=== PATIENT | female | born 1950 | race Caucasian/White ===

== ENCOUNTER 2020-09-20 09:21 | Outpatient (REF) | payer MEDICARE, SELFPAY ==
--- NOTE | ~2020-09-20 | CT_ITS ---
EXAMINATION: CT ABDOMEN AND PELVIS WITHOUT AND WITH CONTRAST CLINICAL INFORMATION: Microscopic hematuria. Urgency. Frequency of micturition. COMPARISON: None. TECHNIQUE: Noncontrast CT of the abdomen and pelvis is performed followed by split bolus contrast-enhanced images using 85 mL Omnipaque 350 contrast.? Postcontrast imaging is performed during the combined nephrogram and excretion phase. Sagittal and coronal reformatted images were obtained on the technologist's workstation for both the precontrast and postcontrast phases. No 3-D imaging. This CT examination was performed using dose optimization techniques as appropriate, variously including the following: *Automated exposure control *Adjustment of mA and/or kV according to patient size (this includes techniques or standardized protocols for targeted exams where dose is matched to indication/reason for exam; i.e. extremities or head) *Use of iterative reconstruction technique DLP: 1124 mGy-cm FINDINGS: LUNG BASES: The visualized lung bases are unremarkable. LIVER, GALLBLADDER, AND BILIARY TREE: The liver is normal in size, shape, and attenuation. No focal hepatic lesion or biliary ductal dilatation is present. The gallbladder is unremarkable with no evidence of radiopaque gallstones, gallbladder wall thickening, or obvious pericholecystic inflammatory changes. PANCREAS: Unremarkable. SPLEEN: Unremarkable. ADRENAL GLANDS: Unremarkable. KIDNEYS AND URETERS: The kidneys are normal in size, shape, and attenuation. No renal mass. There is normal enhancement of the cortex of both kidneys. No hydronephrosis, hydroureter, or calculi seen. There are no filling defects in the past by collecting systems of either kidney. No perinephric stranding. BLADDER: Unremarkable. GASTROINTESTINAL TRACT: There is no acute abnormality. There is no bowel wall thickening /edema. There is no bowel obstruction. There is a moderate volume of stool in the colon. The appendix is normal . The small bowel loops are unremarkable. The stomach is normal. There is no hiatal hernia. ABDOMINAL WALL: No significant hernia is appreciated. LYMPH NODES: Normal. VASCULAR: Atherosclerotic vascular calcifications of aorta and iliac arteries. There is no aneurysm. PELVIC VISCERA: Unremarkable. OSSEUS STRUCTURES: Unremarkable. CT/CT urogram IMPRESSION: No acute abnormality CT scan abdomen pelvis. Normal kidneys, ureter and bladder.
[2020-09-20] MEDS: iohexoL 350 MG/ML 100 ML INFUS..BTL IV (10:27)
== END 2020-09-20 09:22 | disposition home or self-care (01) ==
LOC: HO.CT 09:21
PROVIDERS: PCP Internal Medicine; Visit Provider Urology
DX: R31.21 Asymptomatic microscopic hematuria (principal); R39.15 Urgency of urination; R35.0 Frequency of micturition
CPT/HCPCS: 74178; Q9967

== ENCOUNTER 2020-12-18 13:41 | Emergency (ER) | payer MEDICARE, SELFPAY ==
--- NOTE | ~2020-12-18 | XR_ITS ---
EXAMINATION: XR CHEST CLINICAL INFORMATION: Dizziness COMPARISON: Previous chest x-ray February 2009 TECHNIQUE: 2 views of the chest were obtained. FINDINGS: The cardiac and mediastinal contours are normal. The lungs are clear. There is no pleural effusion or pneumothorax. There is curvature of the thoracic spine to the right and degenerative change. XR/XR chest 2V IMPRESSION: No evidence for acute disease in the chest.
--- NOTE | ~2020-12-18 | CT_ITS ---
EXAMINATION: CT HEAD WITHOUT CONTRAST CLINICAL INFORMATION: Dizziness. COMPARISON: MRI brain 01/17/2019 TECHNIQUE: Contiguous axial imaging was performed from the skull base to vertex without intravenous administration of contrast. This CT examination was performed using dose optimization techniques as appropriate, variously including the following: *Automated exposure control *Adjustment of mA and/or kV according to patient size (this includes techniques or standardized protocols for targeted exams where dose is matched to indication/reason for exam; i.e. extremities or head) *Use of iterative reconstruction technique DLP: 624 mGy-cm FINDINGS: There is no evidence of acute intracranial hemorrhage or territorial infarction. No abnormal mass effect or midline shift is seen. Dimas to white matter differentiation is well preserved. No extra-axial fluid collections are identified. The lateral ventricles are symmetrical and mildly prominent. There is periventricular hypodensity in both cerebral hemispheres without mass effect or edema.. The osseous structures and soft tissues are normal. The mastoid air cells and visualized portions of the paranasal sinuses are well aerated. CT/CT head/brain wo con IMPRESSION: No acute intracranial process seen.
[2020-12-18 13:49] VITALS: BP 121/55; BP 136/74; PULSE 69; PULSE 72; RESP 16; TEMP 36.4; O2SAT 93; O2SAT 97; BMI 40.7
--- NOTE | 2020-12-18 13:56 | ECG_ITS ---
Test Reason : DIZZYNESS Blood Pressure : / mmHG Vent. Rate : 069 BPM Atrial Rate : 069 BPM P-R Int : 186 ms QRS Dur : 116 ms QT Int : 460 ms P-R-T Axes : 073 -14 058 degrees QTc Int : 492 ms Normal sinus rhythm Right atrial enlargement Incomplete right bundle branch block Prolonged QT Abnormal ECG When compared with ECG of 25-FEB-2009 09:07, QT has lengthened Referred By: Poonam Briec Electronically Signed By:IBETH ARCEO
--- NOTE | 2020-12-18 13:58 | ED_ITS ---
HPI - Dizziness General Chief Complaint: Dizziness Stated Complaint: VERTIGO W/VOMITING Time Seen by Provider: 12/18/20 13:45 Source: patient and EMS Mode of arrival: EMS Limitations: no limitations History of Present Illness HPI Narrative: 70-year-old female with a past medical history of hypertension, hyperlipidemia here with complaints of dizziness which began at 12:30.. Patient describes it as a feeling that the room is moving and is worsened with the movement of her head. She has nausea and vomiting with this. She recently was diagnosed with breast cancer and has upcoming appointment with an oncologist to discuss this. She is taking an aspirin 81 mg daily. She denies any associated headache, vision changes, weakness, numbness, tingling, chest pain, diarrhea or abdominal pain. Related Data Previous Rx's Medication Instructions Recorded meclizine 25 mg PO TID PRN #14 tab 12/18/20 Allergies Allergy/AdvReac Type Severity Reaction Status Date / Time No Known Allergies Allergy Verified 12/18/20 13:59 Review of Systems Review of Systems: Yes all other systems are reviewed and are negative Constitutional: Constitutional: Reports no additional constitutional complaints, Denies body ache(s), Denies chills, Denies fever(s), Denies headache(s) and Denies weakness Eyes: Eyes: Reports no additional eye complaints and Denies change in vision ENT: Reports system reviewed and no additional complaints, except as documented, Reports dizziness, Denies headache(s), Denies nasal congestion, Denies nasal discharge and Denies neck pain Cardiovascular: Cardiovascular: Reports no additional cardiovascular complaints, Denies chest pain, Denies leg edema and Denies dyspnea Respiratory: Respiratory: Reports no additional respiratory complaints, Denies cough and Denies dyspnea Gastrointestinal: Gastrointestinal: Reports no additional gastrointestinal complaints, Denies abdominal pain, Denies diarrhea, Reports nausea and Reports vomiting Genitourinary: Genitourinary: Reports no additional female genitourinary complaints and Denies urinary incontinence Musculoskeletal: Musculoskeletal: Reports no additional musculoskeletal complaints, Denies back pain, Denies arthralgias, Denies joint swelling, Denies neck pain, Denies numbness and Denies tingling Integumentary/Breasts: Skin/Breast: Reports system reviewed and no additional complaints, except as docu and Denies rash Neurologic: Reports system reviewed and no additional complaints, except as documented, Denies Abnormal speech present, Reports dizziness, Denies heada rachel(s), Denies numbness, Denies tingling and Denies weakness PMFSH Past Medical History Attestation statement: The following information was validated with the patient. Source: old records reviewed and nursing notes reviewed Medical History H/O malignant neoplasm of breast Hypercholesteremia Hypertension Tinnitus Vertigo Social History Social History Advance Directives: No Advance Directives Information Provided: Yes Physical Exam Vital Signs: Vital Signs: Last Vital Signs Temp 97.5 F 12/18/20 13:49 Pulse 68 12/18/20 16:15 Resp 16 12/18/20 16:15 BP 115/68 12/18/20 16:15 Pulse Ox 95 12/18/20 16:15 Body Mass Index 40.7 Const: General: cooperative, healthy appearing, comfortable and no acute distress Orientation/consciousness: patient oriented x3 Limitations: no limitations HENMT: Head: Yes normal to inspection Ears: hearing grossly normal bilaterally General nose exam: Normal external nose present Face and sinus: Yes normal facial exam Mouth: Normal oral and palatal mucosa present Throat: Yes posterior oropharynx normal Eyes: General: appearance normal, both eyes and all related structures Visual Tatum: normal visual tatum by confrontation Alignment and Position: alignment normal Periorbital: periorbital findings normal Eyelids: Yes eyelids normal Pupils: Equal, round and reactive pupils present EOM: EOMs intact bilaterally Direct Ophthalmoscopy: normal light reflex Neck: Neck: Yes normal visual inspection Chest: Chest palpation & inspection: normal inspection of the chest Resp: Effort & Inspection: normal respiratory effort Auscultation: clear to auscultation bilaterally Cardio: Rate: regular rate Rhythm: regular rhythm Peripheral pulses: Peripheral pulses 2+ throughout GI: Inspection: Yes normal to inspection Palpation (GI): Soft to palpation and nontender Auscultation: normal bowel sounds Back/Spine/Pelvis: Thoracic/Lumbar Spine: thoracic and lumbar spine normal to inspection Skin: General skin exam: no rashes or lesions noted Neuro: General: patient oriented x3, no focal motor deficits and normal sensation to monofilament Cranial nerves: Yes CN's II-XII intact bilaterally, Yes Facial sensation intact/muscles of mastication intact, Yes Equal, round and reactive pupils present, Yes Bilaterally intact EOM present, Yes Nystagmus not present, Yes Normal facial strength present and Yes Midline tongue present Cognition (Neuro): normal cognition Speech: No Abnormal speech present Gait exam (Neuro): Normal gait present Motor exam (neuro): 5/5 motor strength present throughout Sensory Exam: Normal double simultaneous stimulation for sensation Deep tendon reflexes (DTR's): Right patellar reflex intensity grade: 2+ and Left patellar reflex intensity grade: 2+ Coordination: [id number] test normal, [id number] test normal and tandem gait normal Extrem: General: Yes normal to inspection NIH Stroke Scale Internal: Initial- Upon Arrival Level of Consciousness: Alert Level of Consciousness Questions: Answers both questions correctly Level of Consciousness Commands: Performs both tasks correctly Best Gaze: Normal Visual: No visual loss Facial Palsy: Normal Motor Arm (Right): No drift Motor Arm (Left): No drift Motor Leg (Right): No drift Motor Leg (Left): No drift Limb Ataxia: Absent Sensory: Normal Best Language: No aphasia Dysarthia: Normal Extinction and Inattention: No abnormality Score: 0 Course Course Course Narrative: 70 yo female here with complaints of dizziness since 1230pm. Feels like the room is spinning and symptoms worsened with head movement. Associated with nausea/vomiting. HD stable for EMS. ON arrival normal neuro exam. No focal deficits. Likely vertigo. NIH 0. Due to age will check labs, EKG, CT head. Will give Zofran and meclizine and reassess. 1620-imaging unremarkable. Labs show no acute finding. Negative troponin with EKG which shows no ischemic changes. Symptoms are resolved after receiving Z ofran and meclizine. The patient ambulated to the bathroom with a steady gait. She is tolerating mike jasmeet and crackers. Likely vertigo. Reviewed worrisome signs and symptoms of when to return to the emergency department. Comfortable discharge home. MDM - Dizziness MDM Narrative Medical decision making narrative: Less likely cerebellar infarct with normal neuro exam, steady gait, normal blood pressure and improvement of symptoms with meclizine Differential Diagnosis Differential diagnosis: Likely benign paroxysmal positional vertigo, orthostatic hypotension and cerebrovascular accident Medical Records Attestation: I reviewed the patient's medical records. Lab Data Attestation: I reviewed the patient's lab results. Result diagrams: 12/18/20 14:17 12/18/20 14:17 Labs: Lab Results 12/18/20 12/18/20 12/18/20 Range/Units 14:11 14:17 14:17 WBC 9.2 (4.8-10.8) X10*3/uL RBC 5.01 (4.20-5.50) X10*6/uL Hgb 16.0 (12.0-16.0) g/dl Hct 46.9 (37-47) % MCV 93.6 (80-98) fL MCH 31.9 (27.0-33.0) pg MCHC 34.1 (31.0-35.0) g/dl RDW 13.4 (11.0-16.0) % Plt Count 235 (160-400) X10*3/uL MPV 10.6 (9.4-12.3) fL Immature Gran % (Auto) 0.4 (0.0-0.4) % Neut % (Auto) 86.0 H (45-73) % Lymph % (Auto) 9.1 L (20-40) % [place] % (Auto) 3.9 (2-11) % Eos % (Auto) 0.2 (0-4) % Baso % (Auto) 0.4 (0-2) % Lymph # (Auto) 0.8 L (1.2-4.9) X10*3/uL [place] # (Auto) 0.4 (0.1-1.2) X10*3/uL Eos # (Auto) 0.0 (0.0-0.4) X10*3/uL Baso # (Auto) 0.0 (0.0-0.2) X10*3/uL Abs Immat Gran (auto) 0.04 H (0.00-0.03) X10*3/uL Absolute Neuts (auto) 7.9 (2.0-8.3) X10*3/uL Absolute Nucleated RBC 0.000 (0.0-0.012) X10*3/uL Nucleated RBC % (auto) 0.0 (0.0-0.2) /100WBC PT 11.9 (9.9-13.0) SEC INR 1.0 (0.9-1.1) APTT 34.3 (24.1-38.0) SEC Sodium (135-145) mmol/L Potassium (3.3-5.1) mmol/L Chloride (96-108) mmol/L Carbon Dioxide (22-29) mmol/L Anion Gap (12-20) BUN (9-16) mg/dL Creatinine (0.5-1.4) mg/dL Estim Creat Clear Calc Estimated GFR POC Glucose 140 H (60-115) mg/dL Random Glucose (60-115) mg/dL Calcium (8.4-10.2) mg/dL Phosphorus (2.7-4.5) mg/dL Magnesium (1.6-2.6) mg/dL Total Bilirubin (0.0-1.0) mg/dL Direct Bilirubin (0.0-0.5) mg/dL AST (5-31) U/L ALT (0-31) U/L Alkaline Phosphatase (39-117) U/L Total Creatine Kinase (26-140) U/L Troponin I High Sens (<3.5-17.0) ng/L Total Protein (6.5-8.0) g/dL Albumin (3.5-5.0) g/dL TSH (0.32-4.0) uIU/mL 12/18/20 12/18/20 Range/Units 14:17 14:17 WBC (4.8-10.8) X10*3/uL RBC (4.20-5.50) X10*6/uL Hgb (12.0-16.0) g/dl Hct (37-47) % MCV (80-98) fL MCH (27.0-33.0) pg MCHC (31.0-35.0) g/dl RDW (11.0-16.0) % Plt Count (160-400) X10*3/uL MPV (9.4-12.3) fL Immature Gran % (Auto) (0.0-0.4) % Neut % (Auto) (45-73) % Lymph % (Auto) (20-40) % [place] % (Auto) (2-11) % Eos % (Auto) (0-4) % Baso % (Auto) (0-2) % Lymph # (Auto) (1.2-4.9) X10*3/uL [place] # (Auto) (0.1-1.2) X10*3/uL Eos # (Auto) (0.0-0.4) X10*3/uL Baso # (Auto) (0.0-0.2) X10*3/uL Abs Immat Gran (auto) (0.00-0.03) X10*3/uL Absolute Neuts (auto) (2.0-8.3) X10*3/uL Absolute Nucleated RBC (0.0-0.012) X10*3/uL Nucleated RBC % (auto) (0.0-0.2) /100WBC PT (9.9-13.0) SEC INR (0.9-1.1) APTT (24.1-38.0) SEC Sodium 143 (135-145) mmol/L Potassium 3.5 (3.3-5.1) mmol/L Chloride 99 (96-108) mmol/L Carbon Dioxide 35 H (22-29) mmol/L Anion Gap 13 (12-20) BUN 18 H (9-16) mg/dL Creatinine 0.87 (0.5-1.4) mg/dL Estim Creat Clear Calc 70.5 Estimated GFR > 60 POC Glucose (60-115) mg/dL Random Glucose 145 H (60-115) mg/dL Calcium 9.8 (8.4-10.2) mg/dL Phosphorus 3.1 (2.7-4.5) mg/dL Magnesium 2.0 (1.6-2.6) mg/dL Total Bilirubin 0.4 (0.0-1.0) mg/dL Direct Bilirubin 0.2 (0.0-0.5) mg/dL AST 16 (5-31) U/L ALT 8 (0-31) U/L Alkaline Phosphatase 89 (39-117) U/L Total Creatine Kinase 72 (26-140) U/L Troponin I High Sens < 3.5 (<3.5-17.0) ng/L Total Protein 6.8 (6.5-8.0) g/dL Albumin 4.0 (3.5-5.0) g/dL TSH 1.19 (0.32-4.0) uIU/mL Imaging Data Chest x-ray: Attestation: I personally reviewed and interpreted this imaging study as follows: Radiologist's impression: EXAMINATION: XR CHEST CLINICAL INFORMATION: Dizziness COMPARISON: Previous chest x-ray February 2009 TECHNIQUE: 2 views of the chest were obtained. FINDINGS: The cardiac and mediastinal contours are normal. The lungs are clear. There is no pleural effusion or pneumothorax. There is curvature of the thoracic spine to the right and degenerative change. XR/XR chest 2V IMPRESSION: No evidence for acute disease in the chest. CT scan - head: Attestation: I personally reviewed and interpreted this imaging study as follows: Radiologist's impression: FINDINGS: There is no evidence of acute intracranial hemorrhage or territorial infarction. No abnormal mass effect or midline shift is seen. Dimas to white matter differentiation is well preserved. No extra-axial fluid collections are identified. The lateral ventricles are symmetrical and mildly prominent. There is periventricular hypodensity in both cerebral hemispheres without mass effect or edema.. The osseous structures and soft tissues are normal. The mastoid air cells and visualized portions of the paranasal sinuses are well aerated. CT/CT head/brain wo con IMPRESSION: No acute intracranial process seen. ECG Data Attestation: I personally reviewed and interpreted this ECG as follows: ECG interpretation date: 12/18/20 ECG interpretation time: 14:11 Interpretation: Normal sinus rhythm with a rate of 69, normal VT, normal QRS, QTC 492 Discharge Plan Discharge Clinical Impression: Vertigo Patient Disposition: Home, Self-Care Instructions: Vertigo (ED) Additional Instructions: Your lab work, imaging all looked unremarkable today You have an inner ear imbalance which is causing your symptoms of dizziness. Take meclizine as needed for symptoms. Return for speech changes, weakness on 1 side of the body, visual changes or feeling unsteady on her feet like you cannot walk safely Follow-up with your regular care provider Prescriptions: New meclizine 25 mg tablet 25 mg PO TID PRN (Reason: dizziness) Qty: 14 RF: 0 Referrals: Love Monroe MD [Primary Care Provider] - 1 week Interventions: ED Discharge Assessment Last Done: 12/18/20 16:27 Discharge Date/Time: 12/18/20 16:27
[2020-12-18 14:22] LABS: Glucose, Whole Blood 140 mg/dL (60-115)
[2020-12-18 14:22] LABS: MANUAL DIFF FLAG NO
[2020-12-18 14:24] LABS: Basophils Percent Auto 0.4 % (0-2); Eosinophils Percent Auto 0.2 % (0-4); Hematocrit 46.9 % (37-47); Imm Gran Abs Auto 0.04 X10*3/uL (0.00-0.03); Imm Gran Pct Auto 0.4 % (0.0-0.4); Lymphocytes Absolute Auto 0.8 X10*3/uL (1.2-4.9); Lymphocytes Percent Auto 9.1 % (20-40); Mean Corpuscular HGB Conc 34.1 g/dl (31.0-35.0); Mean Corpuscular Hemoglobin 31.9 pg (27.0-33.0); Mean Corpuscular Volume 93.6 fL (80-98); Mean Platelet Volume 10.6 fL (9.4-12.3); Monocytes Absolute Auto 0.4 X10*3/uL (0.1-1.2); Monocytes Percent Auto 3.9 % (2-11); Neutrophils Absolute Auto 7.9 X10*3/uL (2.0-8.3); Platelet Count 235 X10*3/uL (160-400); Red Blood Count 5.01 X10*6/uL (4.20-5.50); Red Cell Distribution Width 13.4 % (11.0-16.0); White Blood Count 9.2 X10*3/uL (4.8-10.8)
[2020-12-18 14:34] LABS: Prothrombin Time 11.9 SEC (9.9-13.0)
[2020-12-18 14:36] LABS: Partial Thromboplastin Time 34.3 SEC (24.1-38.0)
[2020-12-18 14:49] LABS: Alanine Aminotransferase 8 U/L (0-31); Alkaline Phosphatase 89 U/L (39-117); Anion Gap 13 (12-20); Aspartate Amino Transferase 16 U/L (5-31); Bilirubin Direct 0.2 mg/dL (0.0-0.5); Bilirubin Total 0.4 mg/dL (0.0-1.0); Blood Urea Nitrogen 18 mg/dL (9-16); Calcium 9.8 mg/dL (8.4-10.2); Carbon Dioxide 35 mmol/L (22-29); Chloride 99 mmol/L (96-108); Creatinine Clr Calc Pharmacy 70.5; Estimated Glomerular Filt Rate > 60; Glucose Random 145 mg/dL (60-115); Phosphorus 3.1 mg/dL (2.7-4.5); Potassium 3.5 mmol/L (3.3-5.1); Sodium 143 mmol/L (135-145); Total Protein 6.8 g/dL (6.5-8.0)
[2020-12-18] MEDS: Meclizine HCl 25 MG TABLET PO (14:51)
[2020-12-18 14:52] LABS: Stroke Lab Use COMPLETE
[2020-12-18 14:53] LABS: Troponin-I High Sensitivity < 3.5 ng/L (<3.5-17.0)
[2020-12-18 15:09] LABS: Thyroid Stimulating Hormone 1.19 uIU/mL (0.32-4.0)
[2020-12-18 16:15] VITALS: BP 115/68; PULSE 68; RESP 16; O2SAT 95
--- NOTE | 2020-12-18 16:16 | PC.NURSE ---
PT REPORTS DIZZY SXS RESOLVED, AMBULATING TO BR WITH NO ISSUE. ABLE TO TOLERATE PO, REPORTS NAUSEA RESOLVED. CONTINUES TO DENY CP, SOB.
== END 2020-12-18 16:27 | disposition home or self-care (01) ==
PROVIDERS: Nurse Practitioner Family; Emergency Provider Emergency Medicine Emergency Medical Services; PCP Internal Medicine
DX: R42 Dizziness and giddiness (principal); I10 Essential (primary) hypertension; E78.5 Hyperlipidemia, unspecified
CPT/HCPCS: 36415; 70450; 71046; 80048; 80076; 82550; 82947; 83735; 84100; 84443; 84484; 85025; 85610; 85730; 93005; 96374; 99284; J2405

== ENCOUNTER 2024-05-16 09:46 | Outpatient (AMB) | payer MEDICARE, SELFPAY ==
[2024-05-16 09:47] VITALS: BP 134/74; PULSE 74; O2SAT 94; BMI 41.5
--- NOTE | 2024-05-16 09:47 | A.OFFVIS_ITS ---
Vital Signs 05/16/24 09:47 Height 5 ft 3 in Weight 234 lb 9.149 oz BMI 41.5 BP 134/74 Blood Pressure Location Rt brachial Position Sitting Pulse 74 Pulse Source Pulse Oximeter Pulse Oximetry (%) 94 Oxygen Delivery Method Room Air Intake Visit Reasons: Colonoscopy Screening Intake Note: NEW PATIENT Amita presents in office today for a scheduled colonoscopy consultation. Prior hx of colo/egd? Y; September 2015. No pertinent information pertaining to pathology. Pt believes that it was hyperplastic. Meds and Allergies reviewed? Y Any significant concerns or questions? No significant concerns or sx. Pharmacy verified? [facility] Required: No Allergies No Known Allergies Allergy (Verified 05/16/24 09:48) HPI HPI Colonoscopy Screening: Details: 74 year old? female with past medical history of hypertension, hypercholesteremia, vertigo, history of right breast neoplasm is here today for pre colonoscopy screening.? Patient was sent to us by her PCP.? ?Last colonoscopy was in 2015 in [place]. Paternal aunt was diagnosed with colorectal cancer and had colostomy in her early 70s.? Patient denies any issues with bowel movements. Denies any melena, hematochezia.? Denies history of difficulty with sedation or anesthesia in the past.? Negative for history of sleep apnea.? Denies any history of cardiac, renal, pulmonary, or hepatic disease.?? No history of infectious? diseases like hepatitis A, B, C, HIV or tuberculosis.? Patient is not on any anticoagulation [facility] Medical History Vertigo Hypertension Hypercholesteremia Tinnitus H/O malignant neoplasm of breast Surgical History (Updated 05/16/24 @ 09:52 by MILLIE Dudley) H/O mastectomy Review of Systems Const Denies weight gain and Denies weight loss ENT Reports no additional complaints, Denies dysphagia and Denies odynophagia Card Reports no additional complaints Resp Reports no additional complaints GI Denies abdominal pain, Denies belching, Denies melena, Denies bloating, Denies change in bowel habits, Denies dysphagia, Denies excessive flatus, Denies dyspepsia, Denies heartburn, Denies diarrhea, Denies loose stools, Denies nausea, Denies odynophagia and Denies vomiting Musc Reports no additional complaints Neuro Reports no additional complaints Psych Reports no additional complaints Endo Reports no additional complaints Physical Exam Vital Signs: Last Vital Signs Pulse 74 05/16/24 09:47 BP 134/74 05/16/24 09:47 Pulse Ox 94 05/16/24 09:47 Oxygen Delivery Method Room Air 05/16/24 09:47 BMI result Body Mass Index 41.5 Const General: healthy appearing and no acute distress Nutritional Appearance: obese Orientation/consciousness: patient oriented x3 Resp Effort & Inspection: normal respiratory effort, able to speak in complete sentences, no tracheal deviation and symmetric chest movement Auscultation: wheezes (Expiratory wheeze) Cardio Rate: regular rate GI Inspection: Yes normal to inspection, No distended and Yes obesity Palpation (GI): Soft to palpation, not firm, nontender and No hepatosplenomegaly present Auscultation: normal bowel sounds General: Yes no CVA tenderness Back/Spine/Pelvis Back: no CVA tenderness Skin General skin exam: elasticity normal, turgor normal and dry skin Neuro General: patient oriented x3 Psych Appearance: grossly normal Mental Status: mental status grossly normal Assessment & Plan Assessment & Plan (1) Screen for colon cancer: Code(s): Z12.11 - Encounter for screening for malignant neoplasm of colon Plan Patient denies any GI, cardiac or respiratory symptoms.? Patient has expiratory wheeze in the upper bilateral lobes. Patient reports smoking 4-5 cigarettes a day. Patient was encouraged to speak to her PCP about possibly starting on corticosteroid inhaler. She has an appointment with him in the beginning of the year. Denies any issues with anesthesia in the past.? Denies any history of sleep apnea.? No history infectious diseases in the past or present.? Not on any anticoagulation therapy.? No family or personal history of colon cancer or polyps.? Patient denies melena, hematochezia, unintentional weight loss or ribbon like stools.? Discussed at length the pre-procedure,? prep, diet & medications as well as what to expect prior, during and after the procedure.?? Stressed the importance of good bowel prep.? Recommended the use of Vaseline or Calmoseptine OTC & baby wipes with bowel movements to promote comfort.? ?Patient verbalizes understanding and agrees to plan of care.? She was given the opportunity to ask questions and all questions answered.? We will see her after the procedure.? Medications: New polyethylene glycol 3350 (Miralax) As directed by gastroenterology department at [facility] 238 grams PO ONCE 238 grams 0RF Z12.11 - Encounter for screening for malignant neoplasm of colon bisacodyl (Dulcolax (bisacodyl)) take 4 tabs at noon the day before your colonoscopy 20 mg (4 x 5 mg) PO ONCE 1 day 4 tabs 0RF Z12.11 - Encounter for screening for malignant neoplasm of colon Coding Level of Care Code New Pt Level 3 (17419) Diagnoses Screen for colon cancer Z12.11 Time Spent (min) 40 Comment 30 minutes spent with patient and additional 10 minutes spent reviewing her records
== END 2024-05-16 11:04 | disposition home or self-care (01) ==
PROVIDERS: PCP Internal Medicine; Visit Provider Nurse Practitioner Family
DX: Z01.818 Encounter for other preprocedural examination (principal); Z12.11 Encounter for screening for malignant neoplasm of colon
CPT/HCPCS: 99024

== ENCOUNTER → 2024-05-16 09:46 | Outpatient (BNVA) | payer MEDICARE, SELFPAY | PROVIDERS: PCP Internal Medicine; Visit Provider Nurse Practitioner Family | DX: Z12.11 Encounter for screening for malignant neoplasm of colon (principal) | CPT/HCPCS: 99212 ==

== ENCOUNTER 2024-10-06 08:45 | Day surgery (SDC) | payer MEDICARE, SELFPAY ==
--- OUTSIDE RECORDS SUMMARY | 2024-09-08 16:42 | XMS_ITS | Clinical Summary ---
Author Organization [facility] Address [address] [place] [address] Phone Care Team Providers Care Urologist Name Role Phone Love Monroe MD Primary Care Provider [phone] Allergies No known active allergies Medications atorvastatin (LIPITOR) 10 mg tablet 1 Active hydroCHLOROthia zide (HYDRODIURIL) 25 mg tablet Take 1 tablet (25 mg total) by mouth daily. Active meloxicam (MOBIC) 15 mg tablet Take 1 tablet (15 mg total) by mouth daily. Active exemestane (AROMASIN) 25 mg tablet Take 1 tablet (25 mg total) by mouth 1 (one) time each day Take after a meal. Try to take at the same time each day. 30 tablet 11 5 Active exemestane (AROMASIN) 25 mg tablet TAKE ONE TABLET BY MOUTH ONCE DAILY 1 08/17/19 25 Discontinu ed(Reorder ) Encounters Date Type Department Care Team Description 08/01/2024 7:44 AM EDT - 08/01/2024 11:59 PM EDT Hospital [facility] [address] [address] Encounter for screening mammogram for breast cancer Discharge Disposition: Home or Self Care from Last 3 Months Immunizations Name Administration Dates Next Due Pfizer SARS-CoV-2 COVID-19, mRNA, LNP-S, preservative free 03/15/2021,09/07/2020,08/16/2020 Surgical History Surgery Date Site/Laterality Comments STEREOTACTIC CORE BIOPSY Right BREAST LUMPECTOMY Right Medical History Medical History Date Comments Breast cancer ([facility]/HCC V24, [facility]/HCC V28) Family History Medical History Relation Name Comments Cancer Father's Sister colon cancer Cancer Mother Rectal Breast cancer Paternal Grandmother Relation Name Status Comments Father's Sister Mother Paternal Grandmother Social History Tobacco Use Types Packs/Day Years Used Date Smoking Tobacco: Every Day Cigarettes Smokeless Tobacco: Never Alcohol Use Standard Drinks/Week Comments Never 0 (1 standard drink = 0.6 oz pur e alcohol) Comments No Sex and Gender Information Value Date Recorded Sex Assigned at Not on file Legal Sex Female 7:23 PM EST Gender Identity Not on file Sexual Orientation Not on file Obstetrics History Para Term AB IAB SAB Ectopic Multiple Livin g Live Births 1 Last Filed Vital Signs Vital Sign Reading Time Taken Comments Blood Pressure 145/69 11/23/2023 9:40 AM EDT Sit ting Right arm Pulse 66 11/23/2023 9:40 AM EDT Temperature - - Respiratory Rate - - Oxygen Saturation - - Inhaled Oxygen Concentration - - Weight 104 kg (230 lb) 08/01/2024 7:56 AM EDT Height 160 cm (5' 3 ) 08/01/2024 7:56 AM EDT Body Mass Index 40.74 08/01/2024 7:56 AM EDT Plan of Treatment Upcoming Encounters Date Type Department Care Team (Late st Contact Info) Description 02/07/2025 9:15 AM EDT Office Visit [facility] Hematology Oncology [address] [place] [id number] Frank Khan MD [address] [place] [address] Health Maintenance Due Date Last Done Comments RSV Immunization Adult Patients (1 - Risk 60-74 years 1-dose series) 2011 Zoster Vaccines (1 of 2) 07/18/2014 05/23/2014, 10/24 Cholesterol Screening (Lipid Panel) 05/03/2022 Colorectal Cancer Screening: Colonoscopy 05/03/2022 Depression Screening 05/03/2022 Falls Risk Assessment 05/03/2022 Hepatitis C Screening 05/03/2022 Medicare Annual Wellness Visit 05/03/2022 Social Influencers of Health Screening 05/03/2022 Hypertension/CHF/CAD Annual BMP Blood Test 08/01/2024 Breast Cancer Screening 08/01/2026 08/02/19, 06/03/2020, 03/20/2019, Additional history exists DTaP,Tdap,and Td Vaccines (3 - Td or Tdap) 07/08/2033 07/08/2023, 11/05/2012 Osteoporosis Screening (Bone Density Screening) 10/11/2033 10/12/2023 Pneumococcal Vaccine: 50+ Years Completed 06/27/2021, 12/15/2016, 10/23/2000 COVID-19 Vaccine Completed 03/17/2024, 10/2022, 02/28/2022, Additional history exists Influenza Vaccine Completed 03/17/2024, , 02/28/2022, Additional history exists HIB Vaccines Aged Out No longer eligi ble based on patient's age to complete this topic HPV Vaccines Aged Out No longer eligi ble based on patient's age to complete this topic Hepatitis A Vaccines Aged Out No long er eligible based on patient's age to complete this topic Hepatitis B Vaccines Aged Out No long er eligible based on patient's age to complete this topic IPV Vaccines Aged Out No longer eligi ble based on patient's age to complete this topic MMR Vaccines Aged Out No longer eligi ble based on patient's age to complete this topic Meningococcal ACWY Vaccine Aged Out N o longer eligible based on patient's age to complete this topic Meningococcal B Vaccine Aged Out No l onger eligible based on patient's age to complete this topic RSV Immunization Patients Under 20 months Aged Out No longer eligible based on patient's age to complete this topic Varicella Vaccines Aged Out No longer eligible based on patient's age to complete this topic Procedures Procedure Name Priority Date/Time Associated Diagnosis Comments MG MAMMO DIGITAL SCREENING W KULWANT BILAT Routine 08/01/2024 8:11 AM EDT Encounter for screening mammogram for breast cancer FANY DEXA AXIAL SKELETON Routine 10/12/2023 5:09 PM EDT Encounter for screening for osteoporosis from Last 3 Months or Most Recently Relevant to Health Maintenance Results * MG Mammo Digital Screening w Kulwant bilat (08/01/2024 8:11 AM EDT) Anatomical Region Laterality Modality Breast Bilateral Mammography 08/01/2024 9:40 AM EDT Impressions 08/01/2024 9:50 AM EDT No mammographic evidence of new or recurrent malignancy. ?? No suspicious interval change. A negative mammogram in the presence of a clinically suspicious palpable abnormality does not preclude the possibility of malignancy or alter the indications for biopsy. ASSESSMENT: ?? BI-RADS 2: BENIGN RECOMMENDATION(S): 1: Routine screening mammogram BILATERAL in 1 year. [facility] [address], [address] -------- FINAL REPORT -------- Dictated By: Rick Caban Dictated Date: 08/01/2024 09:40 ET Assigned Physician: Rick Caban Reviewed and Electronically Signed By: Rick Caban Signed Date: 08/01/2024 09:50 ET Workstation ID: [id number] Transcribed By: Self Edit Transcribed Date: 08/01/2024 09:40 ET Narrative 08/01/2024 9:50 AM EDT EXAM: ??SCREENING MAMMOGRAPHY, BILATERAL HISTORY: ??SCREENING. ??Personal history of right breast cancer. ??Scar marker medial right breast. ??Right lumpectomy 2020. Paternal grandmother with history of breast cancer. COMPARISON: ??07/29/2023, 07/28/2022, 07/26/2021, 06/02/2020 TECHNIQUE: Synthesized CC and MLO projections of each breast. ??Tomosynthesis of each breast in the CC and MLO projections. ADDITIONAL IMAGING: None Computer-aided detection was employed with the iCAD ??[employer] AI 3-D. TISSUE DENSITY: The breasts are almost entirely fatty. (BI-RADS ??Category A) FINDINGS: RIGHT BREAST: There is distortion with an oil cyst and some small dystrophic calcifications surrounded by surgical clips at the lumpectomy site. ??There are surgical clips in the right axilla. ?? No new suspicious right breast finding LEFT BREAST: No suspicious mass. No suspicious calcification. No distortion. ?? No additional suspicious left breast findings Procedure Note Rick Caban MD - 08/01/2024 EXAM: SCREENING MAMMOGRAPHY, BILATERAL HISTORY: SCREENING. Personal history of right breast cancer. Scarmarker medial right breast. Right lumpectomy 2020. Paternal grandmother with history of breast cancer. COMPARISON: 07/29/2023, 07/28/2022, 07/26/2021, 06/02/2020 TECHNIQUE: Synthesized CC and MLO projections of each breast.Tomosynthesis of each breast in the CC and MLO projections. ADDITIONAL IMAGING: None Computer-aided detection was employed with the [facility] AI 3-D. TISSUE DENSITY: The breasts are almost entirely fatty. (BI-RADS CategoryA) FINDINGS: RIGHT BREAST: There is distortion with an oil cyst and some small dystrophiccalcifications surrounded by surgical clips at the lumpectomy site. Thereare surgical clips in the right axilla. No new suspicious right breast finding LEFT BREAST: No suspicious mass. No suspicious calcification. No distortion. Noadditional suspicious left breast findings IMPRESSION: No mammographic evidence of new or recurrent malignancy. No suspicious interval change. A negative mammogram in the presence of a clinically suspicious palpableabnormality does not preclude the possibility of malignancy or alter theindications for biopsy. ASSESSMENT: BI-RADS 2: BENIGN RECOMMENDATION(S): 1: Routine screening mammogram BILATERAL in 1 year. [facility] location[facility] [address], [address] -------- FINAL REPORT -------- Dictated By: Rick Caban Dictated Date: 08/01/2024 09:40 ET Assigned Physician: Rick Caban Reviewed and Electronically Signed By: Rick Caban Signed Date: 08/01/2024 09:50 ET Workstation ID: [id number] Transcribed By: Self Edit Transcribed Date: 08/01/2024 09:40 ET us Self Referral Sppl IMG BI PROCEDURES Final Resul t * FANY DEXA AXIAL SKELETON (10/12/2023 5:09 PM EDT) Anatomical Region Laterality Modality Mammography 10/12/2023 10:4 0 AM EDT Narrative 10/12/2023 5:[address] [facility] Diagnostic Imaging Department [address] [place] [id number] Patient: ??AMITA MKA ?/Age/Sex: 1950 - Unit#: ??[id number] ? Location/Status: ??SPDIMAM/REG CLI ? Mnemonic/Ordering Site: ??MAMDEXAAX/SPMAM Ordering Physician: ??FRANK KHAN MD [facility] Dexa Axial Skeleton - 10/12/23 - [id number] Report Status:Signed History: Low estrogen state due to menopause. Current smoker. Comparison: No comparison study. Findings: Bone densitometry is performed utilizing dual energy x-ray absorptiometry (DXA) in the [employer] unit. The lumbar spine and proximal femora are evaluated in the AP projection. The FRAX questionaire was completed. The results indicate low bone mass (osteopenia), with a right femoral neck T- score of -1.7. The Z score is -0.7, indicating bone mineral density within the range of normal for age. ??The detailed DEXA report will be mailed to the referring physician's office. Dual[employer]em[employer] FRAX: 10-year Probability of Fracture: Major Osteoporotic 10.3 percent ??Hip 2.9 percent. IMPRESSION: Osteopenia. [id number] Dictating Physician: ??HALEY LUNDBERG MD Electronically Signed by: ??HALEY LUNDBERG MD Dic Date/Time: ??10/12/231707 Sign date/Time: ??10/12/231708 Procedure Note Haley Lundberg MD - 01/11/2024 [facility] Diagnostic Imaging Department [address] [place] [id number] Patient: AMITA MAK Haris Murcia/Age/Sex: 1950 - 73 - F Unit#: [id number] [facility] Ordering Physician: FRANK KHAN MD [facility] Dexa Axial Skeleton - 10/12/23 - [id number] Report Status:Signed History: Low estrogen state due to menopause. Current smoker. Comparison: No comparison study. Findings: Bone densitometry is performed utilizing dual energy x-ray absorptiometry(DXA) in the [employer] unit. The lumbar spine and proximal femora areevaluated in the AP projection. The FRAX questionaire was completed. The results indicate low bone mass (osteopenia), with a right femoral neckT- score of -1.7. The Z score is -0.7, indicating bone mineral density withinthe range of normal for age. The detailed DEXA report will be mailed to the referring physician's office. [employer]emur FRAX: 10-year Probability of Fracture: Major Osteoporotic 10.3 percent Hip 2.9 percent. IMPRESSION: Osteopenia. [id number] Dictating Physician: HALEY LUNDBERG MD Electronically Signed by: HALEY LUNDBERG MD Dic Date/Time: 10/12/231707 Sign date/Time: 10/12/231708 Frank Khan MD IMG BI PROCEDURES Final Resu lt from Last 3 Months or Most Recently Relevant to Health Maintenance Insurance [employer] [place] MEDICARE ADVANTAGE Care Teams Urologist Relationship Specialty Start Date End Date Love Monroe MD [address] [place] [address] PCP - General Shallot Cleaner 12/25/20
--- OUTSIDE RECORDS SUMMARY | 2024-09-08 16:42 | XMS_ITS | Clinical Summary ---
Author Organization [facility] Address [address] [place] [address] Care Team Providers Care Merchandise Flow Manager Name Role Phone Love Monroe MD Primary Care Provider [phone] Allergies No known active allergies Medications Medication Sig Dispensed Refills Start Date End Date Status atorvastatin (LIPITOR) tablet 10 mg 0 11/01/2020 Active hydroCHLOROthiazide (HYDRODIURIL) tablet 25 mg Take 1 tablet (25 mg total) by mouth daily. 0 Active meloxicam (MOBIC) 15 MG tablet Take 1 tablet (15 mg total) by mouth daily. 0 Active valsartan (DIOVAN) tablet 80 mg Take 1 tablet (80 mg total) by mouth daily. 0 Active exemestane (AROMASIN) 25 MG tablet TAKE ONE TABLET BY MOUTH ONCE DAILY 90 tablet 1 01/28/2024 Active Active Problems No known active problems Immunizations Name Administration Dates Next Due Covid-19 (Pfizer) Dilution Required 09/07/2020,0 08/16/2020 Family History Medical History Relation Name Comments Cancer Mother Rectal Cancer Paternal Aunt colon cancer Relation Name Status Comments Mother Paternal Aunt Social History Tobacco Use Types Packs/Day Years Used Date Smoking Tobacco: Every Day Cigarettes 0.3 Smokeless Tobacco: Never Alcohol Use Standard Drinks/Week Comments Never 0 (1 standard drink = 0.6 oz pur e alcohol) Sex and Gender Information Value Date Recorded Sex Assigned at Not on file Gender Identity Not on file Sexual Orientation Not on file Job Start Date Occupation Industry Not on file Not on file Not on file Last Filed Vital Signs Vital Sign Reading Time Taken Comments Blood Pressure 145/69 11/23/2023 9:40 AM EDT Pulse 66 11/23/2023 9:40 AM EDT Temperature 36.6 ??C (97.8 ??F) 11/23/2023 9:40 AM ED T Respiratory Rate - - Oxygen Saturation 97% 11/23/2023 9:40 AM EDT Inhaled Oxygen Concentration - - Weight 101.8 kg (224 lb 6.4 oz) 11/23/2023 9:40 AM EDT Height 160 cm (5' 3 ) 02/23/2023 9:04 AM EDT Body Mass Index 39.75 02/23/2023 9:04 AM EDT Plan of Treatment Health Maintenance Due Date Last Done Comments Hepatitis C Screening 1950 Depression Screening 1963 Preventative Health Evaluation 1969 Shingrix-Zoster Vaccine (1 of 2) 1970 Colon Cancer Screening (Colonoscopy) 1996 Breast Cancer Screening (Mammogram) 2001 Fall Risk Assessment 2016 Osteoporosis Screening (DEXA Scan) 2016 DTap / Tdap / Td (2 - Td or Tdap) 11/05/2022 11/05/2012 COVID-19 Vaccine ( season) 2024 03/15/2021, 09/07/2020, 08/16/2020 Influenza Vaccine (#1) 2024 2, 03/28/2021, 03/07/2020, Additional history exists RSV Adult > 60+ Yrs or (1 - 1-dose 75+ series) 2026 Pneumococcal Vaccine Completed 06/27/2021, 12/15/2016, 10/23/2000 Hepatitis B Vaccines Aged Out No long er eligible based on patient's age to complete this topic RSV Ped < 20 months Aged Out No longe r eligible based on patient's age to complete this topic Care Teams Merchandise Flow Manager Relationship Specialty Start Date End Date Love Monroe MD [address] [address] PCP - General Nuclear Equipment Design Engineer 12/25/20
[2024-10-04 14:17] VITALS: BMI 41.4
--- NOTE | 2024-10-05 09:46 | HO.ANESPROP2 ---
Documented by User: Orquidea Ac NP 10/05/24 09:46 HPI - Anesthesia Eval Consult details Narrative: 74yo F for Colonoscopy [facility] Past Medical History Medical History Current every day smoker Vertigo Hypertension Hypercholesteremia Tinnitus H/O malignant neoplasm of breast Surgical History Surgical History H/O mastectomy Social History Social History Are you a primary director medicare sales to a significant other at home: No Do you presently have visiting nurse or other home services: No Patient Tobacco Use Status: Current everyday Tobacco user Tobacco use type: Cigarette Cigarettes Per Day: 5 Years Smoked: 30 Smoked in Last 30 Days: Yes Use of substances other than those prescribed or required for medical reasons: No Have you been hit, kicked, punched, or otherwise hurt by someone within the past year? If so, by whom?: No Are you DNR?: No Advance Directives: No Advance Directives Information Provided: No Advance Directives on File: No Patient : No : No Poor oral hygiene: No Meds Allergies Allergy/AdvReac Type Severity Reaction Status Date / Time No Known Allergies Allergy Verified 10/06/24 09:28 Home Medications ?Medication ?Instructions ?Recorded ?Confirmed ?Last Taken ?Type atorvastatin 10 mg tablet 10 mg PO DAILY 05/12/24 10/06/24 Unknown History exemestane 25 mg tablet 25 mg PO DAILY 05/12/24 10/06/24 Unknown History hydrochlorothiazide 25 mg tablet 25 mg PO DAILY 05/12/24 10/06/24 10/05/24 History meloxicam 15 mg tablet 15 mg PO DAILY 05/12/24 10/06/24 10/05/24 History miscellaneous medical supply 05/12/24 Unknown History valsartan 160 mg tablet 160 mg PO DAILY 05/12/24 10/06/24 10/05/24 History Exam Height,Weight and Vital Signs: Height 5 ft 3 in Weight 106.141 kg Assessment and Plan Assessment Anesthesia Assessment: Chart Reviewed Documented by User: Lupillo Shelby MD 10/06/24 10:50 [facility] Past Medical History Medical History Current every day smoker Vertigo Hypertension Hypercholesteremia Tinnitus H/O malignant neoplasm of breast Family History Family history of problems with anesthesia: No Surgical History Surgical History H/O mastectomy History of Problems with Anesthesia: No Social History Social History Are you a primary director medicare sales to a significant other at home: No Do you presently have visiting nurse or other home services: No Patient Tobacco Use Status: Current everyday Tobacco user Tobacco use type: Cigarette Cigarettes Per Day: 5 Years Smoked: 30 Smoked in Last 30 Days: Yes Use of substances other than those prescribed or required for medical reasons: No Have you been hit, kicked, punched, or otherwise hurt by someone within the past year? If so, by whom?: No Are you DNR?: No Advance Directives: No Advance Directives Information Provided: No Advance Directives on File: No Patient : No : No Poor oral hygiene: No Meds Allergies Allergy/AdvReac Type Severity Reaction Status Date / Time No Known Allergies Allergy Verified 10/06/24 09:28 Home Medications ?Medication ?Instructions ?Recorded ?Confirmed ?Last Taken ?Type atorvastatin 10 mg tablet 10 mg PO DAILY 05/12/24 10/06/24 Unknown History exemestane 25 mg tablet 25 mg PO DAILY 05/12/24 10/06/24 Unknown History hydrochlorothiazide 25 mg tablet 25 mg PO DAILY 05/12/24 10/06/24 10/05/24 History meloxicam 15 mg tablet 15 mg PO DAILY 05/12/24 10/06/24 10/05/24 History miscellaneous medical supply 05/12/24 Unknown History valsartan 160 mg tablet 160 mg PO DAILY 05/12/24 10/06/24 10/05/24 History Exam Airway Mallampati Class: II TM Dist: <=3cm Neck ROM: Full Heart: ok Lungs: SpO2 92% on room air. Sl. wheeze. Gave nebulizer. Smoker, no hx of lung dis. Assessment and Plan Assessment Anesthesia Assessment: Anesthesia Plan Discussed Final Anesthetic Review Family History of Problems with Anesthesia: No History of Problems with Anesthesia: No NPO: Yes ASA Class: III Final Preanesthetic Review: No Changes in Pt Med Stat, Meds/Allgs Chart Reviewed, Consent Obtained/Reviewed and Anes Risks/Benef Reviewed Patient Risk: Intermediate Procedure Risk: Low Anesthetic Plan Anesthetic Plan: MAC: and Agree w/ Assess. and Plan Disposition: Standard PACU
[2024-10-06 09:32] VITALS: BP 125/53; PULSE 89; RESP 16; TEMP 36.4; O2SAT 92; BMI 39.9
[2024-10-06] MEDS: Lactated Ringers 1,000 ML 100 ML IVCONT (09:47)
[2024-10-06] MEDS: Albuterol Sulfate (0.083%) 2.5 MG/3 ML VIAL.NEB INHALE (09:55)
[2024-10-06 09:57] VITALS: PULSE 81; RESP 18; O2SAT 92
--- NOTE | 2024-10-06 10:00 | PC.NURSE ---
Patients last dose PO meloxicam yesterday. Dr. Berg made aware.
--- NOTE | 2024-10-06 10:00 | MHC.SHP ---
Pre-Procedural Eval Section A - 24 Hr Update-Section A only Date of Service: 10/06/24 Section B - Complete if H&P > 30 days Chief Complaint: Encounter for screening for malignant neoplasm of Relevant Family History (Specify if Yes): No Relevant Social History: None Present Medications: see Short Stay Collaborative assessment Medical History: Significant History (Vertigo Hypertension Hypercholesteremia Tinnitus H/O malignant neoplasm of breast) History of Previous Operations: Relevant previous surgery/procedure and date(s) (H/O mastectomy) Allergies: Allergies Allergy/AdvReac Type Severity Reaction Status Date / Time No Known Allergies Allergy Verified 10/06/24 09:28 Review of Systems Sugical H&P ROS: Negative: Constitution, Cardiovascular, Respiratory, Neurological, Psychiatric, Hem-Onc, Allergic/Immunologic, Gastrointestinal, Genitourinary, Musculoskeletal, Integumentary, Endocrine and Eyes/Ears/Nose/Throat Exam Surgical H&P Exam: Normal: HEENT, Normal: Heart, Normal: Lungs, Normal: Extremities, Normal: Abdomen, Normal: Skin and Normal: Neurological Plan Diagnosis/Plan: Unchanged I have reviewed the history and physical and performed a pertinent physical examination on my patient. No changes have occurred unless specified. Time Spent With Patient Time: Total time managing care of this patient today ____ minutes.
--- NOTE | 2024-10-06 10:11 | PC.NURSE ---
Patient in preop. SaO2 max 92% room air. No known respiratory disease dignosed. Slight congested smokers cough present. Daily smoker, 5 cigarettes per day, last cigarette this morning. Ventolin nebulizer administered by respiratory. Tolerated well. Dr. Shelby at bedside and made aware.
--- NOTE | 2024-10-06 10:51 | HO.OPN-COLON ---
Colonoscopy Operative Note Operative Note Date of Service: 10/06/24 Narrative: Operative Information Procedure Description: Colonoscopy Indication: screening Anesthesia: MAC COLONOSCOPY Instrument: Olympus variable stiffness pediatric scope 190L Colonoscopy Monitoring: Vital signs and clinical assessment, continuous EKG monitoring, Pulse oximetry, Carbon Dioxide monitoring and blood pressure monitoring were done throughout the procedure. Colon withdrawal time was 10 minutes. Procedure: The patient was placed in the left lateral decubitis position and pre-procedure medications were administered. After a digital rectal examination of the ano-rectum, the video colonoscope was inserted into the rectum and advanced through the colon to the cecum/TI. The colonoscope was slowly withdrawn in a retrograde panoramic fashion and the colon mucosa was carefully examined including a retroflexed view of the rectum. Findings and interventions are described below. Procedure Difficulty: moderate, tight angles in sigmoid Findings: Terminal Ileum-normal Cecum:normal Right sided colo retroflexion- normal Ascending Colon: normal Transverse Colon -normal Descending Colon:normal Sigmoid Colon: moderate severe diverticulosis Rectum: Retroflexion with small internal hemorrhoids seen, grade I Anorectum - normal Intervention: none Colon preparation: [place] Bowel Preparation Scale Right colon; 2 Transverse colon: 2 Left colon; 2 (0 = Unprepared colon segment with mucosa not seen due to solid stool that cannot be cleared. 1 = Portion of mucosa of the colon segment seen, but other areas of the colon segment not well seen due to staining, residual stool and/or opaque liquid. 2 = Minor amount of residual staining, small fragments of stool and/or opaque liquid, but mucosa of colon segment seen well. 3 = Entire mucosa of colon segment seen well with no residual staining, small fragments of stool or opaque liquid) Impression and Post Procedure Diagnosis: diverticulosis internal hemorrhoids Plan: High fiber diet leaflet Avoid straining at stool, epsom salts and sitz bath, anusol supps or cream Repeat Colonoscopy in 10 years if health allows or earlier if clinically indicated, otherwise this would be her last screening colonoscopy Above findings were reviewed with the patient and relevant handouts were provided if indicated.
[2024-10-06 10:57] VITALS: BP 85/42; PULSE 83; RESP 20; TEMP 37.1; O2SAT 88; O2SAT 91
[2024-10-06 11:12] VITALS: BP 109/56; PULSE 74; RESP 20; O2SAT 95
[2024-10-06 11:13] VITALS: PULSE 71; RESP 18; O2SAT 92
[2024-10-06 11:19] VITALS: BP 114/63; PULSE 72; RESP 18; TEMP 37.3; O2SAT 94
== END 2024-10-06 12:02 | disposition home or self-care (01) ==
PROVIDERS: PCP Internal Medicine; Visit Provider Internal Medicine Gastroenterology
PROC: 0DJD8ZZ Inspection of Lower Intestinal Tract, Via Natural or Artificial Opening Endoscopic (ICD-10-PCS; CPT 45378; principal; 2024-10-06 11:10)
DX: Z12.11 Encounter for screening for malignant neoplasm of colon (principal); K57.30 Diverticulosis of large intestine without perforation or abscess without bleeding; K64.0 First degree hemorrhoids; R06.2 Wheezing; I10 Essential (primary) hypertension; E78.00 Pure hypercholesterolemia, unspecified; E66.9 Obesity, unspecified; Z68.41 Body mass index [BMI] 40.0-44.9, adult; F17.210 Nicotine dependence, cigarettes, uncomplicated
CPT/HCPCS: G0121; 94640; J2003; J2704

== ENCOUNTER → 2024-10-06 08:45 | Outpatient (BNV) | payer MEDICARE, SELFPAY | PROVIDERS: PCP Internal Medicine; Visit Provider Internal Medicine Gastroenterology | DX: Z12.11 Encounter for screening for malignant neoplasm of colon (principal); K57.30 Diverticulosis of large intestine without perforation or abscess without bleeding; K64.0 First degree hemorrhoids | CPT/HCPCS: 45378 ==